=== PATIENT | female | born 1985 | race Caucasian/White ===

== ENCOUNTER → 2020-02-21 | Outpatient (CLI) | payer OTHER | END | disposition home or self-care (01) | LOC: CFH 07:15 | PROVIDERS: ATTEND Family Medicine | DX: K80.20 Calculus of gallbladder without cholecystitis without obstruction (principal) | CPT/HCPCS: 76705 ==

== ENCOUNTER 2021-03-13 18:52 | Emergency (ER) | payer OTHER ==
[~2021-03-13] VITALS: Ht 160 cm; Wt 54.6 kg
[2021-03-13 19:00] VITALS: BP 130/73
[2021-03-13] MEDS ORDERED: NEOSPORIN OINT. PKT 1 PACKET ONE (19:53)
== END 2021-03-13 20:08 | disposition home or self-care (01) ==
LOC: ED 20:00
DX: S81.852A Open bite, left lower leg, initial encounter (principal); W54.0XXA Bitten by dog, initial encounter; Y93.89 Activity, other specified; Y92.89 Other specified places as the place of occurrence of the external cause; Y99.8 Other external cause status
CPT/HCPCS: 99283